=== PATIENT | female | born 1960 | race Caucasian/White ===

== ENCOUNTER 2021-01-19 17:42 | Emergency (ER) | payer BC ==
--- NOTE | 2021-01-19 18:34 | EDM.PDOC ---
ED HPI GENERAL MEDICAL PROBLEM - General Chief Complaint: ENT Problem Stated Complaint: NOSE BLEED Time Seen by Provider: 01/19/21 18:20 Source of Information: Reports: Patient, RN Notes Reviewed History Limitations: Reports: No Limitations - History of Present Illness INITIAL COMMENTS - FREE TEXT/NARRATIVE: Patient is a 60-year-old female who presents to the ER for her ongoing nosebleeds. This has been ongoing for the last 2 weeks. She notes that she has had 3 nosebleeds today. The only change she has made in her daily routine issues put on blood pressure medications roughly 1 week ago. She has a history of thyroid cancer with a thyroidectomy and is on thyroid replacement. Notes that her primary care provider is worried about her thyroid levels going up after having the thyroid taken out. Patient states that she can feel a nosebleed, nausea, she gets some nasal congestion, gets a slight headache, and the nosebleed comes. The nosebleed did stop while she was waiting in the ER waiting room. Today it is bleeding out of the left nare. It seems to be the nare that she keeps bleeding out of. She did talk with her primary care provider about this, and Vaseline was put in there at one point in time, but she does not keep up with this. Patient denies any other sick-like symptoms, fever/chills, cough/shortness of breath, nausea/vomiting/diarrhea. - Related Data Home Meds: Home Meds Levothyroxine Sodium [Tirosint] 137 mcg PO DAILY 01/19/21 [History] Losartan [Cozaar] 50 mg PO DAILY 01/19/21 [History] Pantoprazole [ProTONIX] 40 mg PO DAILY 01/19/21 [History] Past Medical History Cardiovascular History: Reports: Hypertension Respiratory History: Reports: Other (See Below) Other Respiratory History: lung nodules - Past Surgical History HEENT Surgical History: Reports: Cataract Surgery, Eye Surgery, Other (See Below) Other HEENT Surgeries/Procedures: multiple eye surgeries, false left eye GI Surgical History: Reports: Appendectomy Female Surgical History: Reports: Section Endocrine Surgical History: Reports: Thyroidectomy Musculoskeletal Surgical History: Reports: Hip Replacement, Other (See Below) Other Musculoskeletal Surgeries/Procedures:: toe amputation, neck and back surgeries Social & Family History - Tobacco Use Tobacco Use Status *Q: Former Tobacco User Used Tobacco, but Quit: Yes Month/Year Tobacco Last Used: 30 years ago - Recreational Drug Use Recreational Drug Use: No ED ROS ENT - Review of Systems Review Of Systems: Comprehensive ROS is negative, except as noted in HPI. ED EXAM, ENT - Physical Exam Exam: See Below Exam Limited By: No Limitations General Appearance: Alert, WD/WN, No Apparent Distress Nose: Normal Inspection, Normal Mucousa, Dried Blood. No: Active Bleeding Mouth/Throat: Normal Inspection, Normal Gums, Normal Lips, Normal Oropharynx, Normal Teeth Respiratory/Chest: No Respiratory Distress, Lungs Clear, Normal Breath Sounds, No Accessory Muscle Use, Chest Non-Tender Cardiovascular: Normal Peripheral Pulses, Regular Rate, Rhythm, No Edema GI/Abdominal: Normal Bowel Sounds, Soft, Non-Tender, No Distention, No Mass Extremities: Normal Inspection, Normal Capillary Refill Neurological: Alert, Oriented, Normal Cognition, No Motor/Sensory Deficits Psychiatric: Normal Affect, Normal Mood Skin: Warm, Dry, Intact, Normal Color, No Rash Course - Vital Signs Last Recorded V/S: Last Vital Signs Temp 97.1 F 01/19/21 18:23 Pulse 100 01/19/21 18:23 Resp 16 01/19/21 18:23 BP 165/112 H 01/19/21 18:23 Pulse Ox 94 L 01/19/21 18:23 - Re-Assessments/Exams Free Text/Narrative Re-Assessment/Exam: 01/19/21 18:34 Patient presents to the ER for the evaluation of her left nosebleed. The nosebleed did stop while in the ER waiting room, we will go ahead and monitor the patient for a little while, to make sure that it does not start bleeding again. Departure - Departure Time of Disposition: 19:03 Disposition: Home, Self-Care 01 Condition: Good Clinical Impression: Recurrent epistaxis - Discharge Information *PRESCRIPTION DRUG MONITORING PROGRAM REVIEWED*: No *COPY OF PRESCRIPTION DRUG MONITORING REPORT IN PATIENT IVAN: No Instructions: Nosebleed, [id number] Forms: ED Department Discharge Additional Instructions: You were evaluated in the ER today for your nosebleeds. Your nosebleed did stop prior to evaluation in the ER, you did have an examination and no areas of bleeding were identified on today's exam. Recommend you try to obtain a humidifier, and keep the air in your house more humid, you may use a nasal moisturizer like AYR, this is a saline nasal moisturizer, that you can put onto a Q-tip and gently place into the nares to keep your airways moisturized. Continue all other medications as previously prescribed. Please return to the ER anytime if symptoms change or worsen. Sepsis Event Note (ED) - Evaluation Sepsis Screening Result: No Definite Risk - Focused Exam Vital Signs: Vital Signs Temp Pulse Resp BP Pulse Ox 01/19/21 18:23 97.1 F 100 16 165/112 H 94 L
== END 2021-01-19 19:23 | disposition home or self-care (01) ==
LOC: JD.ED 17:42
DX: R04.0 Epistaxis (principal)
CPT/HCPCS: 99282; 99283

== ENCOUNTER 2021-08-15 20:47 | Emergency (ER) | payer BC ==
--- NOTE | 2021-08-15 21:12 | EDM.PDOC ---
ED HPI GENERAL MEDICAL PROBLEM - General Chief Complaint: Lower Extremity Injury/Pain Stated Complaint: LEFT LEG/FT SWOLLEN Time Seen by Provider: 08/15/21 20:54 Source of Information: Reports: Patient History Limitations: Reports: No Limitations, Other (ED vital signs reveal a temp of 96.9, pulse of 99, respiratory rate of 15, O2 saturation 95% on room air) - History of Present Illness INITIAL COMMENTS - FREE TEXT/NARRATIVE: 61-year-old female presents the emergency department with complaints of left foot and lower leg swelling and pain. Patient had a left foot fusion on 1 by her peanut blancher, . Patient has been on weightbearing until she saw Dr. Calhoun on 08/10/2021. He allowed her at that time to use a walking boot with increasing increments of time. She states that approximately 3 days ago she noted significant swelling and pain to her left foot as well her left medial proximal tibial area. Denies any recent fever, chills, nausea, vomiting or diarrhea or flulike symptoms. Denies any shortness of breath or chest pain. She states that she is unable to get the swelling to decrease even with rest and elevation. She states she did send a picture of her leg to Dr. Clahoun yesterday and he requested that she be evaluated in ER. She states she did come here however the wait was too long so she elected to go home yesterday. Left Foot Pain Score (Numeric/FACES): 8 - Related Data Allergies Allergy/AdvReac Type Severity Reaction Status Date / Time Fish Containing Products Allergy Hives Verified 08/15/21 21:03 Home Meds: Home Meds Levothyroxine Sodium [Tirosint] 137 mcg PO DAILY 01/19/21 [History] Losartan [Cozaar] 50 mg PO DAILY 01/19/21 [History] Pantoprazole [ProTONIX] 40 mg PO DAILY 01/19/21 [History] oxyCODONE HCl/Acetaminophen [Percocet 5-325 mg Tablet] 1 tab PO ASDIRECTED PRN 08/15/21 [History] Past Medical History Cardiovascular History: Reports: Hypertension Respiratory History: Reports: Other (See Below) Other Respiratory History: lung nodules - Past Surgical History HEENT Surgical History: Reports: Cataract Surgery, Eye Surgery, Other (See Below) Other HEENT Surgeries/Procedures: multiple eye surgeries, false left eye GI Surgical History: Reports: Appendectomy Female Surgical History: Reports: Section Endocrine Surgical History: Reports: Thyroidectomy Musculoskeletal Surgical History: Reports: Hip Replacement, Other (See Below) Other Musculoskeletal Surgeries/Procedures:: toe amputation, neck and back surgeries Social & Family History - Tobacco Use Tobacco Use Status *Q: Never Tobacco User Second Hand Smoke Exposure: No - Caffeine Use Caffeine Use: Reports: Soda - Recreational Drug Use Recreational Drug Use: No Review of Systems - Review of Systems Review Of Systems: Comprehensive ROS is negative, except as noted in HPI. ED EXAM, GENERAL - Physical Exam Exam: See Below Exam Limited By: No Limitations General Appearance: Alert, WD/WN, No Apparent Distress Ears: Normal External Exam, Hearing Grossly Normal Nose: Normal Inspection Throat/Mouth: Normal Inspection, Normal Lips, Normal Voice, No Airway Compromise Head: Atraumatic Neck: Normal Inspection, Supple Respiratory/Chest: No Respiratory Distress, Lungs Clear, Normal Breath Sounds, No Accessory Muscle Use, Chest Non-Tender Cardiovascular: Normal Peripheral Pulses, Regular Rate, Rhythm, No Murmur Peripheral Pulses: 1+: Dorsalis Pedis (L), 2+: Dorsalis Pedis (R) GI/Abdominal: Normal Bowel Sounds, Soft, Non-Tender, No Distention (Female) Exam: Deferred Rectal (Female) Exam: Deferred Back Exam: Normal Inspection Extremities: Other (Well-healed surgical incision noted to the dorsal aspect of the patient's left foot. She does have a amputated left fifth digit. 2-3+ edema noted to the dorsal aspect of the left foot. Edema also noted to the medial aspect of the proximal left tibial area.) Neurological: Alert, Oriented, Normal Cognition Psychiatric: Normal Affect, Normal Mood Skin Exam: Warm, Dry, Intact, Normal Color, No Rash Lymphatic: No Adenopathy Course - Vital Signs Text/Narrative:: As stated above, patient presents with left foot and left lower leg swelling and tenderness that started approximately 3 days ago. Physical exam does reveal 2- 3+ edema noted to the dorsal aspect of the left foot. Patient's surgical incisions are clean dry and intact. There does not appear to be any signs or symptoms of infection. There is not increased redness warmth noted to the left foot. Patient also has swelling noted to the left proximal medial tibial area area is painful with very minimal palpation. Remainder of physical exam is otherwise unremarkable. Obtain an ultrasound of the left lower extremity to rule out DVT. Will also obtain baseline lab studies to include CBC CMP magnesium and a C-reactive protein level. Last Recorded V/S: Last Vital Signs Temp 96.9 F 08/15/21 21:00 Pulse 99 08/15/21 21:00 Resp 15 08/15/21 21:00 BP 150/134 H 08/15/21 21:00 Pulse Ox 95 08/15/21 21:00 - Orders/Labs/Meds Orders: Active Orders 24 hr Category Date Time Status VL Duplex Lwr Ext Veins Ltd Lt [US] Stat Exams 08/15/21 21:07 Taken Labs: Laboratory Tests 08/15/21 08/15/21 Range/Units 21:15 21:15 WBC 6.81 (3.98-10.04) K/mm3 RBC 4.21 (3.98-5.22) M/mm3 Hgb 12.9 (11.2-15.7) gm/dl Hct 39.7 (34.1-44.9) % MCV 94.3 (79.4-94.8) fl MCH 30.6 (25.6-32.2) pg MCHC 32.5 (32.2-35.5) g/dl RDW Std Deviation 43.3 (36.4-46.3) fL Plt Count 250 (182-369) K/mm3 MPV 10.6 (9.4-12.3) fl Neut % (Auto) 56.6 (34.0-71.1) % Lymph % (Auto) 30.1 (19.3-51.7) % [place] % (Auto) 9.8 (4.7-12.5) % Eos % (Auto) 3.1 (0.7-5.8) Baso % (Auto) 0.3 (0.1-1.2) % Neut # (Auto) 3.85 (1.56-6.13) K/mm3 Lymph # (Auto) 2.05 (1.18-3.74) K/mm3 [place] # (Auto) 0.67 H (0.24-0.36) K/mm3 Eos # (Auto) 0.21 (0.04-0.36) K/mm3 Baso # (Auto) 0.02 (0.01-0.08) K/mm3 Sodium 141 (136-145) mEq/L Potassium 4.2 (3.5-5.1) mEq/L Chloride 104 (98-107) mEq/L Carbon Dioxide 28 (21-32) mEq/L Anion Gap 13.2 (5-15) BUN 12 (7-18) mg/dL Creatinine 0.9 (0.55-1.02) mg/dL Est Cr Clr Drug Dosing 55.97 mL/min Estimated GFR (MDRD) > 60 (>60) mL/min BUN/Creatinine Ratio 13.3 L (14-18) Glucose 113 H (70-99) mg/dL Calcium 9.1 (8.5-10.1) mg/dL Total Bilirubin 0.5 (0.2-1.0) mg/dL AST 22 (15-37) U/L ALT 24 (14-59) U/L Alkaline Phosphatase 77 (46-116) U/L C-Reactive Protein 0.6 (<1.0) mg/dL Total Protein 6.8 (6.4-8.2) g/dl Albumin 4.0 (3.4-5.0) g/dl Globulin 2.8 gm/dL Albumin/Globulin Ratio 1.4 (1-2) - Re-Assessments/Exams Free Text/Narrative Re-Assessment/Exam: 08/15/21 22:23 Hematology and chemistries are essentially unremarkable. White count is normal as well as C-reactive protein. No signs or symptoms of infection. Preliminary ultrasound report is negative for left lower extremity DVT. Formal radiologist report is pending. Patient will be discharged home with recommendations that she resume nonweightbearing status to left lower extremity until she can follow-up with Dr. Wynne in the clinic. Also recommend that she keep the left foot elevated as much as possible to decrease swelling. Patient is agreeable to this plan of care. She will be discharged home. Departure - Departure Time of Disposition: 22:24 Disposition: Home, Self-Care 01 Condition: Good Clinical Impression: Pain and swelling of left lower leg - Discharge Information Referrals: Heidy Chance NP [Primary Care Provider] - Jeronimo Wynne II, DPM [Physician] - Forms: ED Department Discharge Additional Instructions: You were seen in the emergency department this evening with complaints of pain and swelling noted to the left foot and lower leg. Lab studies were completed and these were all unremarkable. There is no sign or symptom of infection. Ultrasound of the left leg was completed and preliminary report reveals no sign of blood clot. As we discussed, formal radiologist report is pending. If there is any sign with blood clot you will be called with results. Recommend nonwei ghtbearing status on the left leg until you can follow-up with Dr. Calhoun. Also recommend elevating the left leg as much as possible to decrease any swelling or inflammation. Should your condition worsen or change, do not hesitate returning to the emergency department. Sepsis Event Note (ED) - Focused Exam Vital Signs: Vital Signs Temp Pulse Resp BP Pulse Ox 08/15/21 21:00 96.9 F 99 15 150/134 H 95 - My Orders Last 24 Hours: My Active Orders 08/15/21 21:07 VL Duplex Lwr Ext Veins Ltd Lt [US] Stat - Assessment/Plan Last 24 Hours: My Active Orders 08/15/21 21:07 VL Duplex Lwr Ext Veins Ltd Lt [US] Stat
--- NOTE | 2021-08-16 08:08 | US ---
Left lower extremity deep venous ultrasound: Duplex and color Doppler evaluation was obtained of the left common femoral, proximal greater saphenous, superficial femoral, popliteal, posterior tibial and peroneal veins. Right common femoral vein was also evaluated. Comparison: No prior venous imaging is available. Findings: Normal phasic flow, augmentation and compression is seen. Impression: 1. No findings of deep venous thrombosis within the left lower extremity or within the right common femoral vein. Diagnostic code #1 I agree with preliminary report from ad, finalized on 08/15/21, 11:53 PM [employer], code 1
== END 2021-08-15 22:47 | disposition home or self-care (01) ==
LOC: JD.ED 20:47
DX: M79.89 Other specified soft tissue disorders (principal); M79.662 Pain in left lower leg; I10 Essential (primary) hypertension; Z91.013 Allergy to seafood; Z79.899 Other long term (current) drug therapy; Z90.49 Acquired absence of other specified parts of digestive tract
CPT/HCPCS: 36415; 80053; 85025; 86140; 93971-26-LT; 93971-LT; 99284-25